=== PATIENT | male | born 1995 | race Caucasian/White ===

== ENCOUNTER 2018-12-26 16:09 | Emergency (ER) | payer OTHER ==
[~2018-12-26] VITALS: Ht 188 cm; Wt 74.8 kg
--- OUTSIDE RECORDS SUMMARY | 2018-12-26 16:12 | XMS REPORT | Clinical Summary ---
Author Author [facility] Address Unknown Phone Unavailable Care Team Providers Care Asset Liability Analyst Name Role Phone PCP Unavailable Allergies Not on File Medications Not on file Active Problems Not on file Social History Date Tobacco Use Types Packs/Day Years Used Never Assessed Sex Assigned at Date Recorded Not on file Industry Job Start Date Occupation Not on file Not on file Not on file Travel End Travel History Travel Start No recent travel history available. Last Filed Vital Signs Not on file Plan of Treatment Health Maintenance Due Date Last Done Comments INFLUENZA VACCINE 01/16/2019 Procedures Comments Procedure Name Priority Date/Time Associated Diagnosis CHLAMYDIA BY PROBETEC Routine 05/31/2018 5:33 PM [employer] GC BY PROBETEC Routine 05/31/2018 Dysuria 5:33 PM [employer] after 12/25/2017 Results * GC By [employer] (05/31/2018 5:33 PM [employer] OPER[employer]) GC [employer] Negative for Neisseria [employer] gonorrhoeae. YAZDANISM Comment: HOSPITAL Specimen Information Specimen Source: Urethra Specimen Site: Not otherwise specified Specimen Urethra - Not otherwise specified Performing Organization Address [facility] [place] Number [facility] DEPARTMENT OF [address] [place] [address] PATHOLOGY AND GENOMIC MEDICINE [employer] [facility] [address] [place] [address] HOSPITAL * Chlamydia by [employer] (05/31/2018 5:33 PM [employer]PER[employer]) Chlamydia, Negative for Chlamydia [employer] trachomatis. YAZDANISM Comment: HOSPITAL Specimen Information Specimen Source: Urethra Specimen Site: Not otherwise specified Specimen Urethra - Not otherwise specified Performing Organization Address City/State/Zipcode Phone Number [facility] DEPARTMENT OF [address] [place] [id number] PATHOLOGY AND GENOMIC MEDICINE [employer] [facility] [address] [place] [address] HOSPITAL after 12/25/2017 Insurance Type Payer Benefit Subscriber ID Effective Phone Address Plan / Dates Group HMO CIGNA CIGNA OPEN xxxxxxxxxxx 2013-P ACCESS/NET resent WORK Advance Directives Patient has advance care planning documents on file. For more information, rodrigo e contact: Dave Byrd [address] [place] [address]
--- NOTE | 2018-12-26 17:19 | Diagnostic Imaging Report ---
EXAMINATION: CHEST SINGLE (PORTABLE) INDICATION: Shortness of breath COMPARISON: None FINDINGS: TUBES and LINES: None. LUNGS: The lung volumes are normal. No focal consolidation or pulmonary edema. PLEURA: No pleural effusion or pneumothorax. HEART AND MEDIASTINUM: The cardiomediastinal silhouette is normal in size and contour. BONES AND SOFT TISSUES: No acute fracture or dislocation. UPPER ABDOMEN: No free air under the diaphragm. IMPRESSION: No focal pneumonia or pulmonary edema. Signed by: Juanita De La Rosa MD on 12/26/2018 5:15 PM
== END 2018-12-26 18:16 | disposition home or self-care (01) ==
LOC: ER 16:09
DX: L50.6 Contact urticaria (principal); L24.0 Irritant contact dermatitis due to detergents
CPT/HCPCS: 71045; 93005; 99283